=== PATIENT | male | born 1980 | race Caucasian/White ===

== ENCOUNTER 2022-11-03 11:32 | Emergency (ER) | payer MEDICAID, SELFPAY ==
[2022-11-03 11:33] VITALS: BP 135/97; PULSE 64; RESP 18; TEMP 35.8; O2SAT 98; BMI 29.8
--- NOTE | 2022-11-03 12:00 | EX.ED.DYSGE1 ---
HPI History of Present Illness Chief Complaint: Allergic Reaction Detail of Chief Complaint: Rash and hives Informant: patient Onset/Context/Timing Onset: Days Context: Gradual Onset Timing: Continuous Current Severity: Mild Maximum Severity: Mild Narrative Narrative: 42-year-old male history of anxiety and depression. Recently started on Prozac. Took it for 3 days. Stopped it 2 days ago when he started getting redness in his throat and developed a rash and hives on his upper extremities and back. No prior history. Otherwise he has no complaints. No trouble swallowing or breathing. He was told to go to the nearest emergency department. He was driving this way so he stopped in the hospital. He lives in [place]. Prior similar symptoms: No Recent Illness/Hospitalization: No PFSH PFSH Home Medications prednisone 20 mg tablet 40 mg (2 x 20 mg) PO DAILY 5 days #10 tabs 11/03/22 [Rx Last Taken Unknown] Allergy/AdvReac Type Severity Reaction Status Date / Time fluoxetine [From Prozac] Allergy Rash Verified 11/03/22 11:34 ROS ROS ED ROS Narrative Rash and hives. Denies recent illness. Review of Systems ROS Unobtainable: Denies due to encephalopathy Constitutional Constitutional ED: Denies chills or fever(s) Eyes Eyes: Denies blurry vision ENT ENT ED: Denies ear pain Cardiovascular Cardiovascular: Denies chest pain Respiratory/Chest Respiratory/Chest: Denies cough or dyspnea Gastrointestinal Gastrointestinal: Denies abdominal pain Genitourinary Genitourinary ED: Denies dysuria Musculoskeletal Musculoskeletal: Denies arthralgias Integumentary Reports rash; Denies abscess or Abrasions Neurologic Neurologic: Denies headache(s) Psychiatric Psychiatric: Denies anxiety Endocrine Endocrinology: Denies cold intolerance Hematologic/Lymphatic Hematologic/Lymphatic: Reports none Allergic/Immunologic Allergic/Immunologic ED: Denies mouth swelling or tongue swelling EXAM Physical Exam Narrative Exam Narrative: 42-year-old male no acute distress. Vital signs stable afebrile. HEENT exam mild erythema posterior pharynx. Tongue is not swollen. No swelling in the posterior throat. No trouble swallowing or breathing. No stridor or drooling. Neck nontender no lymphadenopathy. Lungs clear. Heart regular rhythm. Abdomen soft. Patient moving all 4 extremities. No edema. He has hives and rash on his upper extremities also his back and left side of his neck. Consistent with allergic reaction. It does elias. There is no sloughing of skin. No vesicles. Const Vital Signs: 11/03/22 11:33 Temperature 96.4 F L Temperature Source Temporal Pulse Rate 64 Respiratory Rate 18 Blood Pressure 135/97 H Blood Pressure Mean 109 Pulse Ox 98 Oxygen Delivery Method Room Air Positive well nourished and well developed; Negative for cachectic, contractures or unkempt General Appearance ED: well developed and NAD; Negative for unkempt, cachectic, contractures, cyanotic, diaphoretic or pallor Nutritional Appearance: Negative for cachectic HEENT Reports moist mucous membranes; Denies dry mucous membranes HEENT Narrative: Posterior pharynx erythema. Negative for trauma or tenderness Mouth ED: No dry mucous membranes Mouth: No dry mucous membranes Eyes PERRL and EOMs intact bilaterally General Eye ED: Negative for pale conjunctiva or scleral icterus Neck no lymphadenopathy, supple and no JVD General: Negative for tenderness Lymph Lymphatic: Negative for other Chest Wall inspection of chest normal and palpation of chest normal Chest: Negative for other Resp normal respiratory effort and clear to auscultation bilaterally Effort and Inspection: Negative for retractions Auscultation: Negative for rales, rhonchi or wheezes Cardio regular rate, regular rhythm, S1 normal heart sound, S2 normal heart sound and no murmurs GI normal to inspection, nondistended, normoactive bowel sounds, non-tender, non-distended and no masses Inspection: Negative for abdominal distention Auscultation: normoactive bowel sounds Palpation: soft; Negative for tender or guarding Back/Spine no CVA tenderness General Back: Negative for CVA tenderness Cervical Spine: Negative for cervical spine tenderness Thoracic Spine / Upper Back: Negative for thoracic spinal tenderness Lumbar Spine / Lower Back: lumbar spinal tenderness Extremity normal to inspection Extremity Narrative: Rash. Hives. General Extremety ED: Negative for edema or tenderness General Extremity: Negative for edema Neuro oriented x3 Sensorium / Orientation: alert; Negative for orientation impaired, lethargic or stuporous Motor Exam: strength 5/5 throughout Psych mental status grossly normal Appearance: Negative for unkempt Attitude: No agitated Mood & Affect: Negative for depressed, anxious or tearful Skin No no rashes or lesions noted, no wounds and skin turgor normal General Skin Exam: elasticity normal; Negative for jaundice or pallor Lesions: No lesion noted Rashes: rashes noted Trauma: Negative for abrasion Wounds: Negative for wounds noted MDM MDM MDM Narrative Medical decision making narrative: Patient started on Prozac and after 3 days started developing a rash. He stopped it. Patient has rash consistent with allergic reaction. He is already stopped the medication 2 days ago. To be placed on prednisone 40 mg a day for 5 days. Follow-up with his doctor if not improving. First dose given in the emergency department. History & Record Review Discussion w/independent historian: Patient Discharge Plan Triage Chief Complaint: Allergic Reaction ED Provider: Vasu Velásquez Dx/Rx/DC Orders Clinical Impression: Hives, Allergic drug reaction Instructions: ED ADVERSE DRUG REACTION Allergic Prescriptions: New prednisone 20 mg tablet 40 mg PO DAILY 5 Days Qty: 10 0RF Primary Care Provider: NOT,DEFINED Referrals: NOT,DEFINED [Primary Care Provider] - Activity Restrictions/Additional Instructions: Rash seems secondary to allergic reaction to the medication. You have already stopped the medication. Prednisone 40 mg once a day for the next 5 days. If rash resolves you can stop the medication early. Follow-up with your doctor if not improving. Return if a lot worse. Disposition Disposition: Home, Self Care
[2022-11-03] MEDS: predniSONE 20 MG Tablet 40 MG PO (12:33)
== END 2022-11-03 12:34 | disposition home or self-care (01) ==
LOC: ED 12:15
PROVIDERS: Emergency Provider Emergency Medicine; PCP Family Medicine; Visit Provider Emergency Medicine
DX: L50.9 Urticaria, unspecified (principal); T78.40XA Allergy, unspecified, initial encounter; X58.XXXA Exposure to other specified factors, initial encounter
CPT/HCPCS: 99281